=== PATIENT | female | born 1955 | race Two or more races ===

== ENCOUNTER 2019-01-06 16:54 | Emergency (ER) | payer MEDICAID, OTHER ==
[~2019-01-06] VITALS: Ht 162.6 cm; Wt 79.4 kg
[2019-01-06 17:36] VITALS: BP 107/75
[2019-01-06] MEDS ORDERED: ACETAMINOPHEN 500 MG TAB PO ONE (21:15)
[2019-01-06] MEDS ORDERED: IBUPROFEN 800 MG TAB PO ONE (21:15)
== END 2019-01-06 23:13 | disposition home or self-care (01) ==
LOC: ER 16:54
DX: M25.511 Pain in right shoulder (principal); M79.604 Pain in right leg; E78.5 Hyperlipidemia, unspecified; W01.0XXA Fall on same level from slipping, tripping and stumbling without subsequent striking against object, initial encounter; Y93.89 Activity, other specified; Y92.89 Other specified places as the place of occurrence of the external cause; Y99.8 Other external cause status
CPT/HCPCS: 71101; 73060; 73090